=== PATIENT | male | born 1950 | race Caucasian/White ===

== ENCOUNTER 2018-03-29 11:52 | Emergency (ER) | payer MEDICARE ==
[~2018-03-29] VITALS: Ht 175.3 cm; Wt 104.3 kg
[~2018-03-29 11:52] MED LIST: CYCLOBENZAPRINE10 MG PO; HYDROMORPHONE HC4 MG PO; PENICILLIN V P500 MG PO; SULFAMETHOXAZO1 EAC1 PO
== END 2018-03-29 13:20 | disposition home or self-care (01) ==
LOC: ED 11:52
PROC: 0HQFXZZ Repair Right Hand Skin, External Approach (ICD-10-PCS; principal; 2018-03-29)
DX: S61.411A Laceration without foreign body of right hand, initial encounter (principal); W26.8XXA Contact with other sharp object(s), not elsewhere classified, initial encounter; F17.200 Nicotine dependence, unspecified, uncomplicated; Z88.0 Allergy status to penicillin; Z91.041 Radiographic dye allergy status
CPT/HCPCS: 12002; 90471; 90715; 99282-25

== ENCOUNTER 2022-11-05 11:27 | Inpatient (IN) | payer MEDICARE ==
[~2022-11-05] VITALS: Ht 175.3 cm; Wt 110.2 kg
[2022-11-05 15:11] LABS: BASOPHILS 0.4 % (0-2); EOSINOPHILS 0.3 % (0-6); HEMOGLOBIN 12.7 g/dL (12.0-18.0); LYMPHOCYTES 14.8 % (24-44); MCH 29.2 (27-36); MCHC 32.7 g/dl (30-36); MCV 89.4 fl (81-99); MONOCYTES 8.1 % (0-12); NEUTROPHILS 76.4 % (39-80); PLATELET COUNT 112 K/uL (140-440); RBC 4.36 M/ul (4.3-5.7)
[2022-11-05 15:28] LABS: ALBUMIN 2.8 g/dL (3.4-5.0); ALBUMIN/GLOBULIN RATIO 0.67 (1.1-2.4); ANION GAP 11.6 (7-21); BILIRUBIN, TOTAL 0.5 ng/dL (0.2-1.0); BUN/CREATININE RATIO 16.34 (6.0-28.6); CALCIUM 8.9 mg/dL (8.5-10.1); CREATININE, SERUM 1.04 mg/dL (0.70-1.30); POTASSIUM 3.6 mmol/L (3.5-5.1)
[2022-11-05 18:17] LABS: BILIRUBIN, URINE NEGATIVE (negative); BLOOD/HGB, URINE NEGATIVE (Negative); KETONE, URINE NEGATIVE (Negative); LEUK ESTERASE, URINE NEGATIVE (negative); NITRITE, URINE NEGATIVE (negative)
--- NOTE | 2022-11-05 20:20 | NUR ---
PT ADMITTED TO ROOM 109 FROM ED, ACCOMPAINED BY HIS . INDEPENDENTLY OFF STRECHER TO BATHROOM TO VOID AND BACK TO BED. C/O FEELING OF NEEDLES IN FEET, LOWER LEGS WHEN HE STANDS UP. PRIMARY RN IN ROOM, ASSESSED SKIN. PT VERY EAGLE, REQUIRED STAFF TO REPEAT QUESTIONS.
[2022-11-05 20:30] VITALS: BP 155/78
--- NOTE | 2022-11-05 21:01 | NUR ---
ADMISSION COMPLETED, PT VOICED AND DEMONSTRATED WHAT TO USE TO CALL STAFF, IS AWARE HE IS NOT TO GET UP ON HIS OWN. MATT WENT HOME, PT KEPT WALLET IN BED WITH HIM, CELL PHONE NEXT TO BED CHARGING. FRESH ICE WATER GIVEN AFTER ADMISSION, PT STATED HE ATE WHILE IN THE ED.
--- NOTE | 2022-11-05 21:02 | NUR ---
PT RONEY BETANCOURT CALLED UNIT, WANTED TO SPEAK TO HIS NURSE, PT GAVE PERMISSION FOR PRIMARY RN TO GIVE UPDATE.
--- NOTE | 2022-11-05 21:20 | NUR ---
Called patients son, Jeff, gave him update and answered questions, he was appreciative.
--- NOTE | 2022-11-05 21:30 | NUR ---
PT CALLED, THIS RN TO ROOM FOR SBA TO BATHROOM, HAD SOME DIFFICULTY GETTING OUT OF BED, HAD TO "TRY TO GET UP COUPLE TIMES", SAT BACK DOWN COUPLE TIMES BEFORE GETTING UP, STATING HE "MUST HAVE SLEPT TOO MUCH", ONCE UP, HE AMBULATED TO BATHROOM VOIDED, AND BACK TO BED.
--- NOTE | 2022-11-06 00:14 | NUR ---
Appears to be sleeping , appears comfortable, no distress noted, call light in reach and light are out.
[2022-11-06 02:34] VITALS: BP 118/69
--- NOTE | 2022-11-06 02:44 | NUR ---
Venessa has been sleeping, appears comfortable, VSS, no complaints, call light within reach, rash without change.
[2022-11-06 05:43] VITALS: BP 114/60
[2022-11-06 05:48] LABS: BASOPHILS 0.3 % (0-2); EOSINOPHILS 0.3 % (0-6); HEMATOCRIT 37.7 % (35.0-50.0); HEMOGLOBIN 12.6 g/dL (12.0-18.0); MCH 29.6 (27-36); MCHC 33.6 g/dl (30-36); MCV 88.2 fl (81-99); MONOCYTES 9.4 % (0-12); PLATELET COUNT 118 K/uL (140-440); RBC 4.27 M/ul (4.3-5.7); RDW 15.2 (10.5-15.0)
[2022-11-06 06:08] LABS: ALBUMIN 2.6 g/dL (3.4-5.0); ALBUMIN/GLOBULIN RATIO 0.67 (1.1-2.4); ANION GAP 11.8 (7-21); BILIRUBIN, TOTAL 0.7 ng/dL (0.2-1.0); BUN/CREATININE RATIO 10.61 (6.0-28.6); CALCIUM 8.7 mg/dL (8.5-10.1); CREATININE, SERUM 1.13 mg/dL (0.70-1.30); POTASSIUM 3.8 mmol/L (3.5-5.1); PROTEIN, TOTAL 6.5 g/dL (6.4-8.2)
--- NOTE | 2022-11-06 06:12 | NUR ---
Venessa is awake and watching TV, VSS - low grade temp 99.3. Redness to lower legs without change but patient does feel like they are getting better has he can cross his legs now without it hurting. call light in reach, no complaints.
--- NOTE | 2022-11-06 06:55 | NUR ---
HANDOFF REPORT RECEIVED FROM PET CAREGIVER RN.
--- NOTE | 2022-11-06 08:20 | NUR ---
PT RESTING IN BED. PT STATES PAIN IS TOLERABLE, IMPROVED FROM YESTERDAY. PT ON ROOM AIR, LUNG SOUNDS CLEAR, DENIES SOB. DENIES NAUSEA, BOWEL TONES ACTIVE, BREAKFAST AT BEDSIDE. PT WITH ERRYTHEMA/RASH ON BLE AND BACK, OUTLINED WITH MARKER. PT WITH CHRONIC NEUROPATHY IN BLE, AT BASELINE. IV DAPTOMYCIN GIVEN. DISCUSSED PLAN OF CARE FOR THE DAY, PT DENIES OTHER NEEDS AT THIS TIME.
[2022-11-06 09:11] VITALS: BP 113/48
--- NOTE | 2022-11-06 10:00 | NUR ---
Spoke with Venessa. He states he lives in town with his . No issues getting in or out of his home. 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 Pt does not use any DME. Pt is retired and drives. He denies any needs and plans on dc to home with when he is medically cleared for dc.
--- NOTE | 2022-11-06 13:33 | NUR ---
PT RESTING IN BED. PT STATES PAIN IS TOLERABLE, DENIES NEED FOR PAIN MEDICATION. PT DID NOT EAT LUNCH, POOR APPETITE. PT DENIES NEEDS AT THIS TIME.
[2022-11-06 14:00] VITALS: BP 116/56
--- NOTE | 2022-11-06 14:17 | NUR ---
PT APPEARED TO BE SLEEPING. DID NOT WAKE AT MY KNOCK. LEFT GUIDEPOST AND CONTACT CARD. SAID SILENT PRAYER FOR HEALING.
[2022-11-06 17:17] VITALS: BP 108/62
--- NOTE | 2022-11-06 18:24 | NUR ---
PT REMAINED AFEBRILE TODAY. PT ON ROOM AIR, LUNG SOUNDS CLEAR. REDNESS TO BLE OUTLINED, PT STATES BETTER THAN YESTERDAY. RECEIVED IV DAPTOMYCIN. PT WITH SMALL APPETITE, DOES NOT LIKE THE HOSPITAL FOOD. IV SALINE LOCKED. VOIDING QS.
[2022-11-06 20:00] VITALS: BP 117/64
--- NOTE | 2022-11-06 20:02 | NUR ---
Into do patients vitals. Patient laying in bed watching tv. Pt denies any cares at this time. Bed in low postion. Call light within reach. Lights turned off. Patient has oral fluids at bedside.
--- NOTE | 2022-11-06 21:05 | NUR ---
Day shift report given by RN @ 1915. Venessa is lying in bed now without complaqint, watching TV, Legs bilat still red and swollen but patient feels they are a little better. VSS, call light in reach.
--- NOTE | 2022-11-06 22:45 | NUR ---
Venessa is awake using his phone and watching TV, He has no complaints, assessment without change, call light in reach.
--- NOTE | 2022-11-07 00:11 | NUR ---
Venessa is up sitting on sofa in room, watching out the window, no complaints, no noted distress, denies discomfort, call light within reach.
--- NOTE | 2022-11-07 04:35 | NUR ---
Patient is awake, no complaints, call light in reach. assessment without change. denies need for pain med.
[2022-11-07 05:07] VITALS: BP 133/89
[2022-11-07 05:29] LABS: BASOPHILS 0.9 % (0-2); EOSINOPHILS 2.5 % (0-6); HEMATOCRIT 37.3 % (35.0-50.0); HEMOGLOBIN 12.4 g/dL (12.0-18.0); LYMPHOCYTES 25.2 % (24-44); MCH 29.4 (27-36); MCHC 33.2 g/dl (30-36); MCV 88.7 fl (81-99); MONOCYTES 10.2 % (0-12); NEUTROPHILS 61.2 % (39-80); PLATELET COUNT 184 K/uL (140-440); RBC 4.21 M/ul (4.3-5.7); RDW 15.2 (10.5-15.0)
--- NOTE | 2022-11-07 05:37 | NUR ---
Patient has been awake all night, no complaints and no need for pain med, legs bilat remain red and swollen, VSS, call light in reach.
[2022-11-07 05:46] LABS: ANION GAP 11.9 (7-21); CALCIUM 8.9 mg/dL (8.5-10.1); POTASSIUM 3.9 mmol/L (3.5-5.1)
--- NOTE | 2022-11-07 07:08 | NUR ---
REPORT RECEIVED FROM MARY ARTHUR. PT RESTING IN BED, REPORTS HE WANTS TO BE DISCHARGE EARLY THIS MORNING. PT DENIES PAIN AND NAUSEA AT THIS TIME. REDENESS TO BLE REMAINS WITHIN OUTLINED AREAS. PT DENIES ADDITIONAL REQUESTS OR OCMPLAINTS. REPORTS HE DID NOT SLEEP LAST NIGHT. CALL LIGHT WITHIN REACH. BED RAILS UP.
--- NOTE | 2022-11-07 07:30 | NUR ---
MORNING ASSESSMENT AND MEDICATION DUE. PT AWAKEN AND ALERT. WATCHING TV. PT ALERT AND OREINTED TO ALL. PT DENIES PAIN AT THIS TIME. PT HAS PULLED OF HIS NAME BRACLET STATING "IT JUST FELL OFF." BUT LATER STATING "WELL I PULLED TO SEE HOW MUCH IT WOULD STRETCH UNTIL IT SNAPPED OFF." PT REFUESE TO HAVE ADDITIONAL NAME BRACLET PLACED. BASELINE NEURPATHY REPORTED TO BLE, PT STATES "OH YEAH, ITS KWAME NUMB AND STUFF FROM MY BACK." LUNG SOUNDS CLEAR. HEART TONES REGULAR. STRONG PEDIAL AND TIBIAL PULSES FELT. +2 SWELLING TO RLE AND +1 TO LLE CONTINUES. REDNESS TO BLE REMAINS WITHIN MARKED AREAS AND APPEARS TO BE RECEDING FROM LINE. BLE REMAIN WARM TO TOUCH. PT REPORS PAIN HAS RESOLVED. PT REPORTS HE IS UNSURE HOW CELLULITIS OCCURED BUT STATES "I'VE BEEN MESSING WITH THE FURNUS, CAR AND AC AND WHO KNOWS WHAT'S IN THOSE." ABDOMEN SOFT AND NON TENDER. SOFT SWOLLEN AREA NOTED TO RIGHT SIDE OF UMBILICUL. PT DENIES PRSENCE OF HERNIA, PT VELMA PAIN AT SITE. MEDICATIONS GIVEN. PT DENIES ADDITIONAL REQUESTS OR COMPLAINTS. CALL LIGHT WITHIN REACH. BED RAILS UP.
[2022-11-07] MEDS ORDERED: BACTRIM DS TAB1 EACH PO (08:06)
--- NOTE | 2022-11-07 09:17 | NUR ---
MEDICATION DUE. PT REPORTS HE HAS FINISHED TALKING WITH MD AND IS READY FOR DISCHARGE. MEDICATION GIVEN. IV FLUSHED AND SALINE LOCKED, IV DC'S PER PROTOCOL. PT UP TO GET DRESSED, INDEPENANT IN ROOM, NO ASSISTANCE NEEDED. CALL LIGHT WITHIN REACH. BED RAILS UP. NO ADDITIONAL REQUESTS OR COMPLAINTS.
[2022-11-07 09:26] VITALS: BP 144/72
--- NOTE | 2022-11-07 09:56 | NUR ---
PT DRESSED AND READY TO LEAVE. I EXERCISED MINISTRY OF PRESENCE PT TALKED OF LIFE CHALLENGES. CONSENTED TO PRAYER. PRAYED FOR ONGOING BLESSING AND THANKFULNESS FOR HEALING.
--- NOTE | 2022-11-07 10:00 | NUR ---
PAPERWORK COMPLETE. PT DRESSED AND REPORTS HE IS READY TO GO. DISCHRAGE INSTRUCTIONS REVEWED WITH PT IN DETAIL. PT REPORTS HIS QUESTIONS HAVE BEEN ANSWERED. PT VERBALIZES UNDERSTANDING OF INSTRUCTIONS, MEDICATIONS AND FOLLOW UP. PT TRANSFERS SELF TO WHEECHAIR. PT WHEELED FROM MED/SURG TO MEET FRIEND AT FRONT OF HOSPTIAL. NO ADDITIONAL REQUESTS OR CONCERNS.
== END 2022-11-07 10:00 | disposition home or self-care (01) | DRG 603 ==
LOC: ED 11:27 → MS 18:33
PROVIDERS: Emergency Medicine; ADMIT Family Medicine; ATTEND Family Medicine
DX: L03.115 Cellulitis of right lower limb (principal); F17.220 Nicotine dependence, chewing tobacco, uncomplicated; M54.30 Sciatica, unspecified side; F12.90 Cannabis use, unspecified, uncomplicated; Z20.822 Contact with and (suspected) exposure to COVID-19; G62.9 Polyneuropathy, unspecified; Z88.0 Allergy status to penicillin; Z91.041 Radiographic dye allergy status; Z79.899 Other long term (current) drug therapy; Z79.2 Long term (current) use of antibiotics; Z98.890 Other specified postprocedural states; Z90.89 Acquired absence of other organs
CPT/HCPCS: 36415; 71045; 73590; 80048; 80053; 81003; 83605; 85025; 87070; 87075; 87205; 93971; 96374; 99285-25; A9270; C9803; J0878; J1650; J3370; J7030; J7060; U0002

== ENCOUNTER 2023-08-30 22:17 | Observation (INO) | payer MEDICARE, OTHER ==
[~2023-08-30] VITALS: Ht 175.3 cm; Wt 101.4 kg
[~2023-08-30 22:17] MED LIST changes: +BACTRIM DS TAB1 EACH PO
[2023-08-30] MEDS ORDERED: DOXYCYCLINE MO100 MG PO (22:30)
[2023-08-30 23:06] LABS: BILIRUBIN, URINE NEGATIVE (negative); BLOOD/HGB, URINE SMALL (Negative); KETONE, URINE NEGATIVE (Negative); LEUK ESTERASE, URINE MODERATE (negative); NITRITE, URINE NEGATIVE (negative)
[2023-08-30 23:13] LABS: WHITE BLOOD CELLS, URINE 21-40 /HPF (0-5)
[2023-08-30 23:14] LABS: BACTERIA, URINE 1+ /hpf (negative); CASTS, URINE NONE SEEN \\lpf; COLLECTION TYPE, URINE CLEAN CATCH; CRYSTALS, URINE NONE SEEN (0-1+); EPITHELIAL CELLS, URINE NS /lpf (0-1+); REFLEX CULTURE, URINE Yes (No)
[2023-08-30] MEDS ORDERED: CEFTRIAXONE/SODIUM CHLORIDE 2 GM/100 ML PIGGYBACK IV ONE (23:15)
[2023-08-30] MEDS ORDERED: DAPTOmycin 500 MG/10 ML VIAL IV ONE (23:15)
[2023-08-30] MEDS ORDERED: ACETAMINOPHEN 500 MG TAB PO ONE (23:45)
[2023-08-30 23:46] LABS: BASOPHILS 0.9 % (0-2); EOSINOPHILS 0.1 % (0-6); HEMATOCRIT 37.6 % (35.0-50.0); HEMOGLOBIN 12.6 g/dL (12.0-18.0); LYMPHOCYTES 8.8 % (24-44); MCH 29.8 (27-36); MCHC 33.6 g/dl (30-36); MCV 88.8 fl (81-99); MONOCYTES 13.4 % (0-12); NEUTROPHILS 76.8 % (39-80); PLATELET COUNT 263 K/uL (140-440); RBC 4.23 M/ul (4.3-5.7); RDW 15.1 (10.5-15.0)
[2023-08-31 00:03] LABS: LACTIC ACID, BLOOD 1.3 mmol/L (0.4-2.0)
[2023-08-31 00:06] LABS: ALBUMIN/GLOBULIN RATIO 0.47 (1.1-2.4); ANION GAP 12.8 (7-21); BILIRUBIN, TOTAL 0.9 ng/dL (0.2-1.0); BUN/CREATININE RATIO 21.53 (6.0-28.6); CALCIUM 8.8 mg/dL (8.5-10.1); CREATININE, SERUM 1.3 mg/dL (0.70-1.30); MAGNESIUM 2.1 mg/dL (1.8-2.4); POTASSIUM 3.8 mmol/L (3.5-5.1); PROTEIN, TOTAL 6.3 g/dL (6.4-8.2)
[2023-08-31] MEDS ORDERED: ondansetron HCL 4 MG/2 ML VIAL IV PRN (02:15)
[2023-08-31] MEDS ORDERED: ACETAMINOPHEN 325 MG TAB PO PRN (02:15)
[2023-08-31] MEDS ORDERED: OXYCODONE HCL 5 MG TAB PO ONE (03:00)
[2023-08-31] MEDS ORDERED: OXYCODONE HCL 5 MG TAB PO PRN (03:00)
--- NOTE | 2023-08-31 03:49 | NUR ---
RECEIVED BEDSIDE REPORT FROM ED RN DENNY, pt THEN TRANSFERRED VIA WC TO MS FLOOR BY THIS RN. pt UP SBA AND TRANSFERRED SELF TO BED. BED ALARM ON FOR SAFETY AND URINAL, CALL LIGHT, AND OTHER BELONGINGS IN REACH. TELE AND CPOX IN PLACE. REDDNESS TO LEFT THIGH OUTLINED, GENERALIZED EDEMA NOTED TO LEFT THIGH AND KNEE AREA, pt DENEIS CALF PAIN WHEN FLEXING LEFT FOOT. BASELINE NUMBNESS AND TINGLING NOTED TO BLE. SECOND RN TASIA PRESENT FOR ADMITTING SKIN ASSESSMENT. FRESH WATER AT BEDSIDE. IV SITE WNL, SALINE LOCKED AND FLUSHES EASILY. NO ADDITIONAL NEEDS.
[2023-08-31 03:56] VITALS: BP 119/68
--- NOTE | 2023-08-31 04:30 | NUR ---
Provided Pt with fresh ice water. No other needs expressed by Pt.
--- NOTE | 2023-08-31 05:55 | NUR ---
pt RESTING QUIETLY IN BED, BED ALARM ON AND CALL LIGHT IN REACH. ON RA, RR EVEN AND UNLABORED, NO DISTRESS NOTED.
--- NOTE | 2023-08-31 07:54 | NUR ---
In pt room at 0658 for bed alarm sounding. Pt is up at edge of bed to void in urinal. Denies needs at this time and removes pulse oximeter probe from his finger stating it is "too tight". Questions answered at this time. Pt report received from MARY Gillis at about 0705 hours.
[2023-08-31] MEDS ORDERED: SODIUM CHLORIDE 0.9% 500 ML IV PRN (08:30)
--- NOTE | 2023-08-31 09:15 | NUR ---
Advised by Charlette Chavis that the pt's fluids have completed infusing and that the pt states he found a bruise on his knee that he doesn't remember being there before. I will assess further.
[2023-08-31 09:24] VITALS: BP 132/69
--- NOTE | 2023-08-31 09:32 | NUR ---
In with pt to assess his right knee. Since my a.m. assessment, his right knee has increased bruising, blanchable, no swelling noted, no pain or tenderness. Pt denies having fallen, has not been "crawling" on his knees, and can't remember having done anything to cause bruising. Will advise Dr. Lawson.
[2023-08-31 09:58] VITALS: BP 132/69
[2023-08-31] MEDS ORDERED: TRIMETHOPRIM/SULFAMETHOXAZOLE 1 EA TAB PO SCH (11:15)
--- NOTE | 2023-08-31 11:16 | NUR ---
registered pharmacy technician in with pt to draw afternoon labs per order
[2023-08-31 11:27] LABS: BASOPHILS 0.4 % (0-2); EOSINOPHILS 0.3 % (0-6); HEMOGLOBIN 12.7 g/dL (12.0-18.0); LYMPHOCYTES 12.3 % (24-44); MCH 29.5 (27-36); MCHC 33.4 g/dl (30-36); MCV 88.5 fl (81-99); MONOCYTES 14.5 % (0-12); NEUTROPHILS 72.5 % (39-80); PLATELET COUNT 302 K/uL (140-440); RBC 4.29 M/ul (4.3-5.7); RDW 14.9 (10.5-15.0)
--- NOTE | 2023-08-31 11:43 | NUR ---
PC from Pt's son, Jeff Kulkarni. Pt gave verbal permission to this RN to speak with his son about his care and plan here. Updated the pt's son on the pt's condition. Encouraged him to call back if he has further questions.
[2023-08-31 11:50] LABS: ALBUMIN/GLOBULIN RATIO 0.43 (1.1-2.4); ANION GAP 11.3 (7-21); BILIRUBIN, TOTAL 0.7 ng/dL (0.2-1.0); BUN/CREATININE RATIO 20.63 (6.0-28.6); CALCIUM 8.8 mg/dL (8.5-10.1); CREATININE, SERUM 1.26 mg/dL (0.70-1.30); POTASSIUM 3.3 mmol/L (3.5-5.1); PROTEIN, TOTAL 6.6 g/dL (6.4-8.2)
[2023-08-31] MEDS ORDERED: PHARMACY RENAL DOSE ADJUSTMENT 1 DOSE MISC PO SCH (12:00)
[2023-08-31] MEDS ORDERED: POTASSIUM CHLORIDE 10 MEQ TABCR PO ONE (12:30)
[2023-08-31 14:02] VITALS: BP 109/72
[2023-08-31] MEDS ORDERED: SULFAMETHOXAZO1 EAC1 PO (14:25)
[2023-09-01] MEDS ORDERED: ENOXAPARIN SODIUM 40 MG/0.4 ML SYR SUB-Q SCH (09:00)
--- NOTE | 2023-09-01 16:06 | EKG ---
[facility] [address] [place] [address] Signed Undetermined rhythm Abnormal QRS-T angle, consider primary T wave abnormality Abnormal ECG No previous ECGs available Confirmed by GIANNI GARCIA MD ([id number]) on 09/01/2023 4:06:02 PM Electronically Signed By: GIANNI GARCIA 09/01/23 1606 PATIENT NAME: DONAVON YATES Electrocardiogram DATE OF : 52 PHYSICIAN: GIANNI GARCIA REPORT #: [id number] REPORT IS CONFIDENTIAL AND NOT TO BE RELEASED WITHOUT AUTHORIZATION
== END 2023-08-31 15:24 | disposition home or self-care (01) ==
LOC: ED 22:17 → MS 22:18
PROVIDERS: Internal Medicine; ADMIT Internal Medicine; ATTEND Internal Medicine
DX: N39.0 Urinary tract infection, site not specified (principal); R41.82 Altered mental status, unspecified; L03.116 Cellulitis of left lower limb; M79.605 Pain in left leg; Z88.0 Allergy status to penicillin; Z91.041 Radiographic dye allergy status
CPT/HCPCS: 36415; 80053; 81001; 83605; 83735; 83880; 85025; 85379; 87040; 87077; 87088; 87186; 93005; 93010; 93971; 96365; 96375; 99285; A9270; G0378; J0696; J0878; J7040

== ENCOUNTER 2023-11-06 14:32 | Emergency (ER) | payer MEDICARE ==
[~2023-11-06] VITALS: Ht 175.3 cm; Wt 97.3 kg
[~2023-11-06 14:32] MED LIST changes: +DOXYCYCLINE MO100 MG PO
[2023-11-06] MEDS ORDERED: DICLOFENAC SODI50 MG PO (15:01)
[2023-11-06] MEDS ORDERED: TRIAMCINOLONE ACET 40 MG/ML VIAL 1 ML IAARTIC ONE (16:15)
[2023-11-06 16:21] LABS: BILIRUBIN, URINE NEGATIVE (negative); BLOOD/HGB, URINE NEGATIVE (Negative); KETONE, URINE NEGATIVE (Negative); LEUK ESTERASE, URINE NEGATIVE (negative); NITRITE, URINE NEGATIVE (negative)
[2023-11-06 16:33] LABS: BASOPHILS 1.1 % (0-2); EOSINOPHILS 2.3 % (0-6); HEMATOCRIT 32.3 % (35.0-50.0); HEMOGLOBIN 10.6 g/dL (12.0-18.0); LYMPHOCYTES 17.1 % (24-44); MCH 27.3 (27-36); MCHC 32.7 g/dl (30-36); MCV 83.4 fl (81-99); MONOCYTES 8.1 % (0-12); NEUTROPHILS 71.4 % (39-80); PLATELET COUNT 414 K/uL (140-440); RBC 3.87 M/ul (4.3-5.7); RDW 16.2 (10.5-15.0)
[2023-11-06 17:16] VITALS: BP 116/77
== END 2023-11-06 17:17 | disposition home or self-care (01) ==
LOC: ED 14:32
PROVIDERS: Family Medicine
DX: M25.462 Effusion, left knee (principal); E03.9 Hypothyroidism, unspecified; F17.200 Nicotine dependence, unspecified, uncomplicated; Z79.899 Other long term (current) drug therapy; Z88.0 Allergy status to penicillin; Z91.041 Radiographic dye allergy status
CPT/HCPCS: 20610; 36415; 81003; 85025; 89051; 89060; 99283-25; J3301

== ENCOUNTER 2024-02-27 14:44 | Emergency (ER) | payer MEDICARE ==
[~2024-02-27] VITALS: Ht 175.3 cm; Wt 107.5 kg
[~2024-02-27 14:44] MED LIST changes: +DICLOFENAC SODI50 MG PO
--- OUTSIDE RECORDS SUMMARY | 2024-02-27 14:51 | XMS ---
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 EJayden VISIT COUNT (12 MO.) [address] [place] [address] TOTAL 5 NOTE: Visits indicate total known visits. ED/UCC VISIT TRACKING (12 MO.) 02/27/2024 14:45 [facility] TYPE: Emergency COMPLAINT: - LEG SWELLING 02/26/2024 12:03 [facility] TYPE: Emergency COMPLAINT: - LT LEG PAIN 12/01/2023 22:09 [facility] TYPE: Emergency DIAGNOSES: 31882. Knee pain [id number]. Staphylococcal arthritis, left knee 11/06/2023 14:33 [facility] TYPE: Emergency COMPLAINT: - KNEE PAIN DIAGNOSES: - Allergy status to penicillin - Effusion, left knee - Hypothyroidism, unspecified - Nicotine dependence, unspecified, uncomplicated - Other nursing home (current) drug therapy - Pain in left knee - Radiographic dye allergy status 08/30/2023 22:17 [facility] TYPE: Emergency COMPLAINT: - UTI SYMPTOMS INPATIENT VISIT TRACKING (12 MO.) 12/01/2023 22:09 [facility] TYPE: Internal Medicine DIAGNOSES: 24722. Pyogenic arthritis, unspecified [id number]. Staphylococcal arthritis, left knee - Pyogenic arthritis, unspecified - Staphylococcal arthritis, left knee 08/30/2023 22:18 [facility] TYPE: Observation COMPLAINT: - CELLULITIS/UTI DIAGNOSES: - Allergy status to penicillin - Altered mental status, unspecified - Cellulitis of left lower limb - Pain in left leg - Radiographic dye allergy status - Urinary tract infection, site not specified [email or web address]
[2024-02-27] MEDS ORDERED: SODIUM CHLORIDE 0.9% 1,000 ML IV ONE (16:30)
[2024-02-27] MEDS ORDERED: HYDROmorphone HCL 1 MG/ML SYR IV PRN (16:30)
[2024-02-27] MEDS ORDERED: ondansetron HCL 4 MG/2 ML VIAL IV ONE (16:30)
[2024-02-27 16:53] LABS: BASOPHILS 1.2 % (0-2); EOSINOPHILS 3.6 % (0-6); HEMATOCRIT 35.6 % (35.0-50.0); HEMOGLOBIN 11.5 g/dL (12.0-18.0); MCH 26.2 (27-36); MCHC 32.2 g/dl (30-36); MCV 81.4 fl (81-99); MONOCYTES 9.2 % (0-12); PLATELET COUNT 353 K/uL (140-440); RBC 4.37 M/ul (4.3-5.7); RDW 17.7 (10.5-15.0)
[2024-02-27 17:02] LABS: PARTIAL THROMBOPLASTIN TIME 28.2 Sec (22.9-41.3)
[2024-02-27 17:03] LABS: INR 1.01 (0.80-1.30); PROTIME 13.2 Sec (11.2-14.2)
[2024-02-27 17:10] LABS: ALBUMIN 2.8 g/dL (3.4-5.0); ALBUMIN/GLOBULIN RATIO 0.54 (1.1-2.4); ANION GAP 10.6 (7-21); BILIRUBIN, TOTAL 0.2 ng/dL (0.2-1.0); BUN/CREATININE RATIO 21.21 (6.0-28.6); CALCIUM 9.4 mg/dL (8.5-10.1); CREATININE, SERUM 0.99 mg/dL (0.70-1.30); POTASSIUM 4.6 mmol/L (3.5-5.1)
[2024-02-27 17:56] LABS: ERYTHROCYTE SEDIMENTATION RATE 82
[2024-02-27] MEDS ORDERED: levoFLOXacin 750 MG PIGGYBACK IV ONE (18:45)
[2024-02-27] MEDS ORDERED: DAPTOmycin 500 MG/10 ML VIAL IV ONE (18:45)
[2024-02-27] MEDS ORDERED: SODIUM CHLORIDE 0.9% 1,000 ML IV PRN (18:45)
[2024-02-27] MEDS ORDERED: metroNIDAZOLE/SODIUM CHLORIDE 500 MG/100 ML PIGGYBACK IV SCH (19:30)
[2024-02-27 19:58] LABS: BILIRUBIN, URINE NEGATIVE (negative); BLOOD/HGB, URINE NEGATIVE (Negative); KETONE, URINE NEGATIVE (Negative); LEUK ESTERASE, URINE NEGATIVE (negative); NITRITE, URINE NEGATIVE (negative)
[2024-02-27 21:35] VITALS: BP 122/76
[2024-02-28] MEDS ORDERED: metroNIDAZOLE/SODIUM CHLORIDE 500 MG/100 ML PIGGYBACK IV SCH (09:00)
== END 2024-02-27 21:35 | disposition short-term general hospital (02) ==
LOC: ED 14:44
PROVIDERS: Emergency Medicine
DX: M60.062 Infective myositis, left lower leg (principal); E03.9 Hypothyroidism, unspecified; F17.200 Nicotine dependence, unspecified, uncomplicated; Z88.0 Allergy status to penicillin; Z91.041 Radiographic dye allergy status
CPT/HCPCS: 36415; 73700; 80053; 81003; 83605; 85025; 85610; 85651; 85730; 86140; 87040; 96365; 96366; 96368; 96375; 99284-25; J0878; J1171; J1956; J2405; J7030